=== PATIENT | female | born 1975 | race Caucasian/White ===

== ENCOUNTER 2016-05-12 10:10 | Emergency (ER) | payer BC, OTHER ==
[~2016-05-12] VITALS: Ht 172.7 cm; Wt 68.0 kg
[2016-05-12 10:12] VITALS: BP 140/96; PULSE 69; RESP 15; TEMP 98.1; O2SAT 98
--- NOTE | 2016-05-12 10:12 | NUR ---
Pt to bed 3, placed in gown for evaluation
--- NOTE | 2016-05-12 10:22 | NUR ---
Recieved Pt in bed 3. Pt c/o right back pain radiating to right leg. Pt states pain is a 10/10. Pt unable to lay down. Pt is currently sitting on the edge of the gurney.
--- NOTE | 2016-05-12 10:27 | NUR ---
Dr. Muñoz at the bedside evaluating Pt. Currently awaiting new orders.
[2016-05-12] MEDS ORDERED: MORPHINE 4 MG/ML INJ. SYRINGE IM ONE (10:45)
[2016-05-12] MEDS ORDERED: LORazepam 2 MG/ML VIAL (FOR ER USE) IM ONE (10:45)
[2016-05-12] MEDS ORDERED: KETOROLAC TROMETHAMINE 60 MG/2 ML VIAL IM ONE (10:45)
[2016-05-12] MEDS ORDERED: ACETAMINOPHEN 500 MG TABLET PO ONE (10:45)
--- NOTE | 2016-05-12 11:01 | NUR ---
Medication administered as ordered. Pt placed on telelmonitor. Informed Pt to push the call light if Pt needs assistance with anythhing. Pt verbalized understanging. Upper siderails up, bed at lowest position, will continue to monitor.
--- NOTE | 2016-05-12 11:20 | NUR ---
Radiolody tech at the bedside preforming Abd xray.
[2016-05-12 12:09] VITALS: BP 128/84; PULSE 61; RESP 12; TEMP 98.4; O2SAT 99
--- NOTE | 2016-05-12 12:11 | NUR ---
Patient given written and verbal discharge instructions and verbalizes understanding. ER MD discussed with patient the results and treatment provided. Given copies of tests performed in ER. Patient in stable condition. ID arm band removed. IV catheter removed intact and dressing applied, no active bleeding. Rx of flexeril given. Patient educated on pain management and to follow up with PMD. Pain Scale 2/10. Opportunity for questions provided and answered. Assisted patient to private auto via wheelchair from RN.
== END 2016-05-12 12:11 | disposition home or self-care (01) ==
LOC: SED 10:10
DX: S39.012A Strain of muscle, fascia and tendon of lower back, initial encounter (principal); X58.XXXA Exposure to other specified factors, initial encounter; Y93.89 Activity, other specified; Y92.89 Other specified places as the place of occurrence of the external cause; Y99.8 Other external cause status
CPT/HCPCS: 72170; 81025; 96372; 99284; J1885; J2060; J2270

== ENCOUNTER 2016-06-03 19:02 | Emergency (ER) | payer BC ==
[~2016-06-03] VITALS: Ht 172.7 cm; Wt 68.0 kg
[2016-06-03 19:15] VITALS: BP_SYST 134
[2016-06-03 20:56] VITALS: BP_SYST 121
== END 2016-06-03 20:56 | disposition home or self-care (01) ==
LOC: SED 19:02
DX: J06.9 Acute upper respiratory infection, unspecified (principal); R19.7 Diarrhea, unspecified; Z88.0 Allergy status to penicillin
CPT/HCPCS: 99283